=== PATIENT | male | born 1995 | race Asian ===

== ENCOUNTER 2021-10-28 08:53 | Emergency (ER) | payer BC, MEDICAID ==
[~2021-10-28] VITALS: Ht 170.2 cm; Wt 66.4 kg
[2021-10-28] MEDS ORDERED: normal saline 1000ML IV soln IVB ONE (10:05)
[2021-10-28] MEDS ORDERED: ondansetron/PF 4mg/2ml inj IV ONE (10:05)
[2021-10-28] MEDS ORDERED: pantoprazole 40 MG vial IV SCH (10:05)
[2021-10-28] MEDS ORDERED: pantoprazole 40MG/NS 100ML BAG 100 ML IV ONE (10:10)
[2021-10-28 10:42] LABS: ALANINE AMINOTRANSFERASE 32 U/L (12-78); ALBUMIN 4.4 G/DL (3.4-5.0); ALBUMIN/GLOBULIN RATIO 0.9 (1.1-1.5); ALKALINE PHOSPHATASE 58 IU/L (46-116); ANION GAP 14 (8-16); ASPARTATE AMINO TRANSFERASE 36 U/L (10-37); BILIRUBIN,TOTAL 0.6 MG/DL (0.1-1.0); BLOOD UREA NITROGEN 8 MG/DL (7-18); BUN/CREATININE RATIO 10.8 (5.4-32.0); CALCIUM 8.7 MG/DL (8.5-10.1); CHLORIDE 102 MMOL/L (99-107); CREATININE 0.74 MG/DL (0.60-1.10); GLUCOSE 104 MG/DL (70-104); LIPASE 115 U/L (73-393); POTASSIUM 3.9 MMOL/L (3.5-5.1); SODIUM 142 MMOL/L (135-145); TOTAL CARBON DIOXIDE 26.1 MMOL/L (24-32); TOTAL PROTEIN 9.1 G/DL (6.4-8.2); eGFR > 90 ML/MIN
[2021-10-28 11:33] LABS: WHITE BLOOD COUNT 5.5 X10'3 (4.5-11.0)
[2021-10-28 11:35] LABS: BASOPHILS % (AUTO) 0.7 % (0-1); EOSINOPHILS % (AUTO) 0.1 % (0-6); HEMATOCRIT 45.7 % (42.0-52.0); HEMOGLOBIN 15.9 g/dl (14.0-17.9); LYMPHOCYTES # (AUTO) 1.8 X10'3 (1.1-4.8); LYMPHOCYTES % (AUTO) 32.2 % (21-51); MEAN CORPUSCULAR HEMOGLOBIN 33.6 PG (27.0-31.0); MEAN CORPUSCULAR HGB CONC 34.7 g/dL (33.0-36.5); MEAN CORPUSCULAR VOLUME 96.8 FL (78-98); MONOCYTES # (AUTO) 0.4 X10'3 (0-0.9); MONOCYTES % (AUTO) 7.8 % (2-12); NEUTROPHILS # (AUTO) 3.2 X10'3 (1.8-7.7); NEUTROPHILS % (AUTO) 59.2 % (42-75); RED BLOOD COUNT 4.72 X10'6 (4.70-6.10); RED CELL DISTRIBUTION WIDTH 13.3 % (11.5-14.5)
[2021-10-28 11:42] LABS: MEAN PLATELET VOLUME 7.6 FL (7.4-10.4); PLATELET COUNT 294 X10'3 (140-440)
[2021-10-28 11:46] VITALS: BP 132/93
[2021-10-28] MEDS ORDERED: ONDA8TAB13 PO (11:50)
[2021-10-28] MEDS ORDERED: PANT-47 PO (11:50)
--- NOTE | 2021-10-28 12:03 | NUR ---
Pt and spouse given and understands d/c instructions. IV d/c'd, catheter was intact. Ambulatory with a steady gait.
== END 2021-10-28 12:03 | disposition home or self-care (01) ==
LOC: ER 08:53
DX: K21.9 Gastro-esophageal reflux disease without esophagitis (principal); R11.2 Nausea with vomiting, unspecified; R10.9 Unspecified abdominal pain
CPT/HCPCS: 80053; 83690; 85025; 96374; 96375; 99284; C9113; J2405; J7030; 96361

== ENCOUNTER 2022-07-23 19:25 | Emergency (ER) | payer MEDICAID ==
[~2022-07-23] VITALS: Ht 170.2 cm; Wt 68.2 kg
[~2022-07-23 19:25] MED LIST: ONDA8TAB13 PO; PANT-47 PO
[2022-07-23 19:33] VITALS: BP 126/90
== END 2022-07-23 19:38 ==
LOC: ER 19:26
DX: Z04.1 Encounter for examination and observation following transport accident (principal); K21.9 Gastro-esophageal reflux disease without esophagitis; F32.9 Major depressive disorder, single episode, unspecified; F17.200 Nicotine dependence, unspecified, uncomplicated; Z72.89 Other problems related to lifestyle; Z56.0 Unemployment, unspecified; Z79.899 Other long term (current) drug therapy; V87.7XXA Person injured in collision between other specified motor vehicles (traffic), initial encounter; Y93.89 Activity, other specified; Y92.488 Other paved roadways as the place of occurrence of the external cause; Y99.8 Other external cause status
CPT/HCPCS: 99283

== ENCOUNTER 2024-12-10 16:54 | Emergency (ER) | payer MEDICAID ==
[~2024-12-10] VITALS: Ht 170.2 cm; Wt 74.6 kg
[~2024-12-10 16:54] MED LIST changes: +ONDA-245 PO; -ONDA8TAB13 PO
[2024-12-10 17:02] VITALS: BP 138/91; PULSE 76; RESP 16; O2SAT 99
[2024-12-10] MEDS ORDERED: AMOX-117 PO (18:32)
--- NOTE | 2024-12-10 18:32 | Physician Documentation ---
History of Present Illness ~ Chief Complaint: Bite-animal Stated Complaint: CAT BITE Time Seen by MD: 17:28 OK to notify your PCP?: Yes Primary Medical Doctor: N/A Source: patient Mode of Arrival: POV Exam Limitations: no limitations HPI 29-year-old male who was bit by his cat right two days ago. He states he noticed that the area around the bite has gotten red and he has some soreness that is spreading up his forearm which made him concerned him to come to the ER today. Last tetanus was three years ago. No pre arrival treatment. No fever, chills, nausea, pain in axilla, chest pain, sob. Tetanus within 5 years?: No Medication Reconciliation Allergies: Coded Allergies: No Known Allergies (Unverified , 10/28/21) Scheduled Pantoprazole Sodium (PROTONIX tablet), 1 TAB PO DAILY Scheduled PRN Ondansetron 8mg ODT (Ondansetron Odt), 1 TAB PO TID PRN for nausea/vomiting Past Medical History Past Medical History: No Pertinent History, GERD, Depression Past Surgical History: no surgical history Alcohol Use: Occasionally Drug Use: none Lives with: Family Lives In: Home Occupation: unemployed Review of Systems All Other Systems at this time: Reviewed and Negative Physical Exam Vital Signs: Temperature: 98.6, Source: Oral, Heart Rate: 76, Respiratory Rate: 16, BP: 138/91, Pulse Oximetry: 99, Weight: 74.600 Oxygen Flow Rate: 0 Physical Exam General Appearance: Alert, WD/WN. NAD. HEENT: NCAT, PERRL, EOMI. Neck: Supple, trachea midline. Cardiovascular: RRR. No m/r/g. Lungs: CTAB. Breathing unlabored Extremities: Normal inspection. No edema. Skin: Warm/dry, normal color. Right forearm three bite acevedo with surrounding erythema no erythema that extends into the antecubital fossa or proximal to the antecubital fossa. No right axillary or cervical lymphadenopathy. Active range motion of wrist and elbow full. Neurological: Alert and oriented x4, normal gait. Psychiatric: Affect congruent with mood. Progress Results/Orders Results/Orders Vital Signs 12/10/24 17:02 Temp 98.6 Pulse 76 Resp 16 B/P (MAP) 138/91 Pulse Ox 99 O2 Flow Rate 0 Medical Decision Making Differential Dx:Considerations: Include: Abrasion, Allergic reaction, Anaphylaxis, Cellulitis, Contusion, Fracture, Hematoma, Insect envenomation, Laceration, Neurovascular injury, Punture wound, Retained foreign body, Urticaria Departure Time of Disposition: 18:29 Disposition: HOME / SELF CARE / HOMELESS Impression: Primary Impression: Cellulitis Qualified Codes: L03.113 - Cellulitis of right upper limb Additional Impression: Cat bite Qualified Codes: W55.01XA - Bitten by cat, initial encounter Condition: Stable Discharge Instructions: Animal Bite, Adult Additional Instructions: ANTIBIOTIC SENT TO PHARMACY IF REDNESS SPREADS UP ARM FURTHER, FEVER, CHILLS PAIN RETURN TO ER Referrals: NO PRIMARY CARE PROVIDER (PCP) Prescriptions Amox Tr/Potassium Clavulanate (Augmentin 875-125 Tablet) 1 Each Tablet 1 TAB PO Q12H for 10 Days, #20 TAB Prov: ANDREWS CARRANZA 12/10/24 Education Educated: Patient Educated regarding: diagnosis, treatment, need for follow up Signature Scribe Signature: X Attestation: ANDREWS SANCHEZ Dec 10, 2024 18:32
[2024-12-10 18:52] VITALS: TEMP 98.6
== END 2024-12-10 18:53 | disposition home or self-care (01) ==
LOC: ER 16:55
DX: L03.113 Cellulitis of right upper limb (principal); W55.01XA Bitten by cat, initial encounter; Y93.89 Activity, other specified; Y92.89 Other specified places as the place of occurrence of the external cause; Y99.8 Other external cause status
CPT/HCPCS: 99283